=== PATIENT | female | born 1995 | race Caucasian/White ===

== ENCOUNTER 2016-10-06 17:17 | Emergency (ER) | payer SELFPAY ==
[~2016-10-06] VITALS: Ht 170.2 cm; Wt 68.0 kg
[2016-10-06 17:23] VITALS: BP 121/76
[2016-10-06] MEDS ORDERED: IBUPROFEN 600 MG TAB PO ONE (20:00)
== END 2016-10-06 20:32 | disposition home or self-care (01) ==
LOC: EDBD 17:24 → ER 17:24
DX: S00.93XA Contusion of unspecified part of head, initial encounter (principal); V49.59XA Passenger injured in collision with other motor vehicles in traffic accident, initial encounter; Y93.89 Activity, other specified; Y99.8 Other external cause status; Y92.410 Unspecified street and highway as the place of occurrence of the external cause
CPT/HCPCS: 70450; 81025